=== PATIENT | male | born 2000 | race Caucasian/White ===

== ENCOUNTER 2022-12-21 20:57 | Emergency (ER) | payer BC ==
[~2022-12-21] VITALS: Ht 165.1 cm; Wt 61.3 kg
[2022-12-21] MEDS ORDERED: [UNRECOGNIZED DRUG - CODE] MC (21:07)
[2022-12-21 22:34] VITALS: BP 128/78; TEMP 98.8; O2SAT 98
== END 2022-12-21 22:37 | disposition home or self-care (01) ==
LOC: M ED 20:57
DX: S00.83XA Contusion of other part of head, initial encounter (principal); S00.03XA Contusion of scalp, initial encounter; S00.412A Abrasion of left ear, initial encounter; Y04.0XXA Assault by unarmed brawl or fight, initial encounter; Y92.009 Unspecified place in unspecified non-institutional (private) residence as the place of occurrence of the external cause

== ENCOUNTER → 2023-05-07 | Outpatient (CLI) | payer BC ==
[~2023-05-07] MED LIST: [UNRECOGNIZED DRUG - CODE] MC
== END ==
LOC: M PLAIMG 07:18
PROVIDERS: ATTEND Physician Assistant
DX: S83.272A Complex tear of lateral meniscus, current injury, left knee, initial encounter (principal); Y93.9 Activity, unspecified; Y92.9 Unspecified place or not applicable